=== PATIENT | female | born 1955 | race Caucasian/White ===

== ENCOUNTER 2023-07-12 07:44 | Day surgery (SDC) | payer MEDICARE ==
[2023-07-11 13:43] VITALS: BMI 26.2
[~2023-07-12 07:44] MED LIST: EPINEPHrine 0.3 MG in Ophthalmic Irrigation Solution 500 ML IRR SCH
[2023-07-12] MEDS ORDERED: Famotidine/PF 20 mg/2ml Vial ONE (09:16)
[2023-07-12] MEDS ORDERED: Cyclopentolate W/ Phenylephrin 5 ML BOT ONE (09:35)
[2023-07-12] MEDS ORDERED: Lidocaine 2% PF 5 ML VIAL ONE (09:58)
[2023-07-12] MEDS ORDERED: Dexamethasone 4 mg/ml Vial ONE (09:59)
[2023-07-12] MEDS ORDERED: SUCCINYLCHOLINE/SOD CL,ISO/PF 200 MG/10 ML SYRINGE FS ONE (09:59)
[2023-07-12] MEDS ORDERED: PROPOFOL 20 ML ONE (09:59)
[2023-07-12] MEDS ORDERED: Ondansetron PF 4 MG/2 ML Vial ONE (09:59)
[2023-07-12] MEDS ORDERED: Metoclopramide HCl 10 MG (2 mL) VIAL ONE (09:59)
[2023-07-12] MEDS ORDERED: fentaNYL 50 mcg/mL 1 mL Vial ONE (10:00)
[2023-07-12] MEDS ORDERED: CEFAZOLIN 1 GM VIAL ONE (11:01)
[2023-07-12] MEDS ORDERED: Triamcinolone 40 MG/ML VIAL ONE (11:01)
[2023-07-12] MEDS ORDERED: Bupivacaine 0.75% 10 ML VIAL ONE (11:01)
[2023-07-12] MEDS ORDERED: Lidocaine 1% PF 5 ML VIAL ONE (11:01)
[2023-07-12] MEDS ORDERED: Maxitrol 0.1% Opth Oint 3.5 GM TUBE ONE (11:01)
[2023-07-12] MEDS ORDERED: Lidocaine 4% PF 5 ML AMP ONE (11:01)
[2023-07-12] MEDS ORDERED: ePHEDrine Sulfate 50 MG/10 ML VIAL ONE (11:09)
== END 2023-07-12 12:50 | disposition home or self-care (01) ==
LOC: SDC 07:44
PROVIDERS: ATTEND Ophthalmology Retina Specialist
PROC: 08953ZZ Drainage of Left Vitreous, Percutaneous Approach (ICD-10-PCS; principal; 2023-07-12)
DX: H35.342 Macular cyst, hole, or pseudohole, left eye (principal)
CPT/HCPCS: 67025; 67042; J3010; J0171; J0690; J1100; J2001; J2405; J2704; J2765; J3301; J3490; S0028

== ENCOUNTER 2023-08-16 06:25 | Day surgery (SDC) | payer MEDICARE ==
[2023-08-15 12:11] VITALS: BMI 26.2
[2023-08-16] MEDS ORDERED: Cyclopentolate W/ Phenylephrin 5 ML BOT ONE (07:30)
[2023-08-16] MEDS ORDERED: PROPOFOL 20 ML ONE (08:12)
[2023-08-16] MEDS ORDERED: Lidocaine 1% PF 5 ML VIAL ONE ×2 (08:13→08:42)
[2023-08-16] MEDS ORDERED: fentaNYL 50 mcg/mL 1 mL Vial ONE (08:13)
[2023-08-16] MEDS ORDERED: SUCCINYLCHOLINE/SOD CL,ISO/PF 200 MG/10 ML SYRINGE FS ONE (08:13)
[2023-08-16] MEDS ORDERED: Ondansetron PF 4 MG/2 ML Vial ONE ×2 (08:23→09:58)
[2023-08-16] MEDS ORDERED: Famotidine/PF 20 mg/2ml Vial ONE (08:39)
[2023-08-16] MEDS ORDERED: CEFAZOLIN 1 GM VIAL ONE (08:42)
[2023-08-16] MEDS ORDERED: Bupivacaine 0.75% 10 ML VIAL ONE (08:42)
[2023-08-16] MEDS ORDERED: Triamcinolone 40 MG/ML VIAL ONE (08:42)
[2023-08-16] MEDS ORDERED: Indocyanine Green 25 MG/10 ML VIAL ONE (08:42)
[2023-08-16] MEDS ORDERED: Lidocaine 4% PF 5 ML AMP ONE (08:42)
[2023-08-16] MEDS ORDERED: Maxitrol 0.1% Opth Oint 3.5 GM TUBE ONE (08:42)
[2023-08-16] MEDS ORDERED: Dexamethasone 20 MG/5 ML VIAL ONE (09:00)
[2023-08-16] MEDS ORDERED: ePHEDrine Sulfate 50 MG/10 ML VIAL ONE (09:07)
[2023-08-16] MEDS ORDERED: SUGAMMADEX SODIUM 200 MG/2 ML VIAL ONE (09:31)
== END 2023-08-16 10:50 | disposition home or self-care (01) ==
LOC: SDC 06:25
PROVIDERS: ATTEND Ophthalmology Retina Specialist
PROC: 08T43ZZ Resection of Right Vitreous, Percutaneous Approach (ICD-10-PCS; principal; 2023-08-16)
DX: H35.341 Macular cyst, hole, or pseudohole, right eye (principal)
CPT/HCPCS: 67042; J3010; 67025; J0171; J0690; J1100; J2405; J2704; J3301; J3490; S0028